=== PATIENT | male | born 1985 | race Two or more races ===

== ENCOUNTER 2020-06-03 17:25 | Outpatient (REF) | payer OTHER, SELFPAY | END 2020-06-03 17:26 | disposition home or self-care (01) | LOC: HO.LAB 17:25 | PROVIDERS: Visit Provider Internal Medicine | DX: Z20.822 Contact with and (suspected) exposure to COVID-19 (principal) | CPT/HCPCS: 36415; C9803; U0003; U0005 ==

== ENCOUNTER 2021-04-23 12:40 | Outpatient (REF) | payer OTHER, SELFPAY ==
[2021-04-23 16:04] LABS: COVID-19 Test Positive (Negative); IDNOW Serial# 16C4AD1C
== END 2021-04-23 12:41 | disposition home or self-care (01) ==
LOC: HO.LAB 12:40
PROVIDERS: Visit Provider Internal Medicine
DX: Z20.822 Contact with and (suspected) exposure to COVID-19 (principal)
CPT/HCPCS: 36415; 87635; C9803

== ENCOUNTER 2024-10-05 09:49 | Outpatient (AMB) | payer OTHER, SELFPAY ==
--- NOTE | 2024-10-05 10:05 | MHC.OFFVIS ---
Vital Signs 10/05/24 10:15 Height 6 ft 2.75 in Weight 251 lb 6 oz BMI 31.6 BP 130/71 Blood Pressure Location Lt brachial Position Sitting Pulse 72 Intake Visit Reasons: (L) upper extremity lipoma Intake Note: Patient is seen in office for evaluation of a lipoma of the left extremity. Pt c/o: left shoulder lipoma, onset 02/27/22 was at work and then started to feel pain and a lump, was swollen at the time, has not gone down since, denies discharge, redness, or other concerns Junior Software Developer Required: No Accompanied by: Self / Same As Patient Allergies No Known Allergies Allergy (Verified 10/05/24 10:14) Medication List - Last Reconciled 10/05/24 by Elijah Caal MD No Known Home Meds HPI Comments Details: 39-year-old male patient presenting with a soft tissue mass of his posterior left shoulder. He 1st noted the lump on 03/19/2022 while lifting a can of ink at work. He felt a pop and then became aware of the lump was posterior shoulder. Since this time the lump has increased in size and causes some mild discomfort. He denies any redness in the skin or discharge. He denies any previous surgery at this location. He is requesting excision of this lump. [facility] Surgical History History of dental surgery Family History Father Stomach cancer Maternal Grandmother Colon cancer Social History Alcohol intake: current Alcohol intake frequency: holidays/special occasions only Patient Tobacco Use Status: Never used Tobacco Review of Systems Const All systems reviewed & are unremarkable except as noted in HPI and below Physical Exam Vital Signs: Last Vital Signs Pulse 72 10/05/24 10:15 BP 130/71 10/05/24 10:15 BMI result Body Mass Index 31.6 Const General: cooperative and no acute distress Nutritional Appearance: well nourished Orientation/consciousness: patient oriented x3 Limitations: no limitations HEENT Head: Yes normocephalic and Yes atraumatic Ears: hearing grossly normal bilaterally Resp Effort & Inspection: normal respiratory effort, no audible wheezes, no cough and no respiratory distress Cardio Jugular venous distension: no JVD GI Inspection: Yes normal to inspection Back/Spine/Pelvis Back/spine/pelvis image: 1. 5 cm soft tissue mass in the posterior left shoulder, mobile within the subcutaneous tissue, most consistent with a lipoma. No overlying skin changes are noted. Skin Other: Warm, dry, no rash Neuro General: patient oriented x3 Extrem General: Yes no clubbing, cyanosis or edema Assessment & Plan Assessment & Plan (1) Lipoma of torso: Code(s): D17.1 - Benign lipomatous neoplasm of skin and subcutaneous tissue of trunk Category: Medical Plan 39-year-old male patient presenting with a probable lipoma of the posterior left shoulder measuring approximately 5 cm in diameter. We discussed surgical options regarding excision of this lipoma. After discussion of the procedure, risks, and alternatives, he consents to excision of the left posterior shoulder lipoma as a minor surgery under local anesthesia. Coding Level of Care Code New Pt Level 4 (47068) Diagnoses Lipoma of torso D17.1
[2024-10-05 10:15] VITALS: BP 130/71; PULSE 72; BMI 31.6
--- OUTSIDE RECORDS SUMMARY | 2024-10-05 10:55 | XMS_ITS | Clinical Summary ---
Author Organization [employer] Address [address] [facility] 7[address] [place] [address] Care Team Providers Care Overlock Sewing Machine Operator Name Role Phone Jose Choudhary MD Primary Care Prov ider Allergies Active Allergy Reactions Criticality Noted Date Comments Gramineae Pollens Runny nose 08/23/2024 Medications No known medications Active Problems Problem Noted Date Diagnosed Date Encounter for medical examination to establish c are 08/23/2024 Assessment & Plan (08/23/2024 11:02 AM EDT): Last pcp visit over 10 yrs ER: - Hospitalization: PMHX: - Pshx: - All: - Meds: multivitamins Lipoma of left upper extremity 08/23/2024 Assessment & Plan (08/23/2024 11:12 AM EDT): Left upper back/shoulder lipoma, will refer to surgery for evaluation Encounters Date Type Department Care Team Description 08/23/2024 10:45 AM EDT Telemedicine [facility] MED & PEDS [address] [place] [address] Jose Choudhary MD Encounter for medical examination to establish care (Primary Dx); Lipoma of left upper extremity 08/23/2024 Travel from Last 3 Months Family History Medical History Relation Name Comments Stomach cancer Father Colon cancer Maternal Grandmother No Known Problems Mother Relation Name Status Comments Father Maternal Grandmother Mother Social History Tobacco Use Types Packs/Day Years Used Date Smoking Tobacco: Never Smokeless Tobacco: Never Tobacco Cessation:Counseling Given: Not Answered Alcohol Use Standard Drinks/Week Comments Yes 0 (1 standard drink = 0.6 oz pur e alcohol) socially Depression Answer Date Recorded Patient Health Questionnaire-9 Score 0 08/23/2024 Patient Health Questionnaire-9 Score 0 08/23/2024 Last PHQ-9: Questionnaire Data Not on file 0 08/23/2024 Housing Stability Answer Date Recorded What is your housing situation today? I have mayra ruiz 08/23/[address] you li ve. Do you have problems with any of the following? None of the above 08/23/2024 Food Insecurity Answer Date Recorded Within the past 12 months, y ou worried that your food would run out before you got money to buy more: Never True 08/23/2024 Within the past 12 months,th e food you bought just didn't last and you didn't have enough money to get more: Never True Transportation Answer Date Recorded In the past 12 months, has l ack of transportation kept you from medical appts, meetings, work or from getting things needed for daily living? No 08/23/2024 Utilities Answer Date Recorded In the past 12 months, has t he electric, gas, oil or water company threatened to shut off services in your home? No 08/23/2024 Depression Answer Date Recorded Patient Health Questionnaire-2 Score 0 08/23/2024 Internet Access Answer Date Recorded Internet Access Q1 Yes 08/23/2024 Internet Access Q2 Not on file 08/23/2024 Sex and Gender Information Value Date Recorded Sex Assigned at Male 08/23/2024 8:09 AM EDT Legal Sex Male 2:53 PM EDT Gender Identity Male 08/23/2024 8:09 AM EDT Sexual Orientation Straight 08/23/2024 8: 09 AM EDT Plan of Treatment Upcoming Encounters Date Type Department Care Team ([facility] st Contact Info) Description 11/27/2024 9:30 AM EDT Office Visit [facility] MED & PEDS [address] [place] [address] Jose Choudhary MD [address] [place] [address] Health Maintenance Due Date Last Done Comments HIV Screening 1987 Lipid Panel 1987 Family Planning (PISQ) 2002 Hepatitis C Screening 2005 DTaP/Tdap/Td Vaccines (1 - Tdap) 2006 Hepatitis B Vaccines (1 of 3 - 19+ 3-dose series) 2006 COVID-19 Vaccine ( - 2023-2 5 season) 2023 Influenza Vaccine (Season Ended) 2024 Alcohol/Substance Use Screening 08/23/2025 08/23/2024 Depression Screening 08/23/2025 08/23/2024, 08/23/2024 Disability Screening 08/23/2025 08/23/2024 SDOH Screening 08/23/2025 08/23/2024 Tobacco Screening 08/23/2025 08/23/2024 Zoster Vaccines (1 of 2) 2037 RSV Patients and Patients Aged 60 years or older (1 - 1-dose 75+ series) 2062 HIB Vaccines Aged Out No longer eligi ble based on patient's age to complete this topic HPV Vaccines Aged Out No longer eligi ble based on patient's age to complete this topic Hepatitis A Vaccines Aged Out No long er eligible based on patient's age to complete this topic IPV Vaccines Aged Out No longer eligi ble based on patient's age to complete this topic Meningococcal B Vaccine Aged Out No l onger eligible based on patient's age to complete this topic Meningococcal Vaccine Aged Out No [place] rick eligible based on patient's age to complete this topic Pneumococcal Vaccine: Pediatrics (0 to 5 Years) and At-Risk Patients (6 to 49) Years) Aged Out No longer eligible b ased on patient's age to complete this topic RSV under 20 months Aged Out No longe r eligible based on patient's age to complete this topic Rotavirus Vaccines Aged Out No longer eligible based on patient's age to complete this topic Insurance [facility] [address] [facility] , [address] [place] [address] Care Teams Overlock Sewing Machine Operator Relationship Specialty Start Date End Date Jose Choudhary MD [address] [place] [id number] PCP - General Internal Medicine 08/23/24
== END 2024-10-05 10:53 | disposition home or self-care (01) ==
LOC: HO.HGS 09:50
PROVIDERS: PCP Internal Medicine; Visit Provider Surgery
DX: D17.1 Benign lipomatous neoplasm of skin and subcutaneous tissue of trunk (principal)
CPT/HCPCS: 99204

== ENCOUNTER → 2024-10-05 09:49 | Outpatient (BNVA) | payer OTHER, SELFPAY | PROVIDERS: PCP Internal Medicine; Visit Provider Surgery ==

== ENCOUNTER 2024-11-07 13:41 | Outpatient (REF) | payer OTHER, SELFPAY ==
[2024-11-07 13:48] VITALS: BP 149/83; PULSE 89; RESP 19; TEMP 36.1; O2SAT 96; BMI 32.1
--- NOTE | 2024-11-07 14:58 | W.PM.OPN ---
Operative Note Operative Note Date of Service: 11/07/24 Narrative: Preoperative diagnosis: Lipoma left posterior shoulder Postoperative diagnosis:same Procedure: Excision of left posterior shoulder lipoma Surgeon: Elijah Caal MD Strap Folding Machine Operator: Yuri GRAF Anesthesia: local lidocaine 1% with epinephrine Indications for procedure: 39-year-old male presenting with a soft tissue mass located in the left posterior shoulder measuring approximately 3 cm in diameter Operative findings: 3 cm lipoma left shoulder Specimen: lipoma left shoulder Estimated blood loss: less than 2 mL Complications: none Procedure details: patient was brought to the minor surgery suite and placed in a prone position. The site of surgery was confirmed by the patient in the left posterior shoulder. After assuring informed consent the skin was prepped with Betadine and draped in a sterile fashion. Local anesthesia was infiltrated in a longitudinal fashion directly over the lipoma. An incision was then made with a scalpel and carried out through subcutaneous tissue up to the lipoma. The lipoma was then sharply dissected from the surrounding subcutaneous tissue using a sharp scissors. Hemostasis was assured using light pressure. The specimen was removed and sent to pathology for further examination. Deep subcutaneous tissue was then reapproximated using interrupted 3-0 Polysorb sutures. Dermis was reapproximated using interrupted 3-0 Polysorb sutures. Skin was then closed using a running subcuticular 4-0 Polysorb suture. Sterile dressings consisting of Steri-Strips, 2 x 2 gauze and Tegaderm were then applied. The patient tolerated the procedure well. He was discharged to home in stable condition.
--- OUTSIDE RECORDS SUMMARY | 2024-11-07 15:02 | XMS_ITS | Clinical Summary ---
Author Organization [employer] Address [address] [facility] [address] [place] [address] Care Team Providers Care Chief Deputy Court Clerk Name Role Phone Jose Choudhary MD Primary [...] Team Description 08/23/2024 10:45 AM EDT Telemedicine [facility] MED & PEDS [address] [place] [address] Jose Choudhary MD Encounter for medical examination [...] Upcoming Encounters Date Type Department Care Team ([facility] st Contact Info) Description 11/27/2024 9:30 AM EDT Office Visit [facility] MED & PEDS [address] [place] [address] Jose Choudhary MD [address] [place] [address] Health Maintenance Due Date Last Done Comments HIV Screening 1987 Lipid Panel 1987 Family Planning (PISQ) 2002 HPV Vaccines (1 - Male 3-dos e series) 2002 Hepatitis C Screening 2005 DTaP/Tdap/Td Vaccines (1 - Tdap) 2006 Hepatitis B Vaccines (1 of 3 - 19+ 3-dose series) 2006 COVID-19 Vaccine (1 - 2023-2 5 season) 2023 Influenza Vaccine (#1) 2024 Alcohol/Substance Use Screening 08/23/2025 08/23/2024 Depression [...] topic Meningococcal Vaccine Aged Out No [place] irck eligible based on patient's age to complete this topic Pneumococcal Vaccine: Pediatrics (0 to 5 Years) and At-Risk Patients (6 to 49) Years Aged Out No longer eligible b ased on patient's age to complete this topic RSV under 20 months Aged Out No longe r eligible based on patient's age to complete this topic Rotavirus Vaccines Aged Out No longer eligible based on patient's age to complete this topic Insurance [facility] [address] [address] [facility] , [address] [place] [address] [address] Clerk Relationship Specialty Start Date End Date MalaveJose Nieves MD [address] [place] [address] [place] [address] PCP - General Internal Medicine 08/23/24
== END 2024-11-07 13:42 | disposition home or self-care (01) ==
LOC: HO.MS 13:41
PROVIDERS: PCP Internal Medicine; Visit Provider Surgery
PROC: (CPT 11403; principal; 2024-11-07 14:30)
DX: D17.1 Benign lipomatous neoplasm of skin and subcutaneous tissue of trunk (principal)
CPT/HCPCS: 11403; 88304; J2004

== ENCOUNTER → 2024-11-07 13:41 | Outpatient (BNV) | payer OTHER, SELFPAY | PROVIDERS: PCP Internal Medicine; Visit Provider Surgery | DX: D17.22 Benign lipomatous neoplasm of skin and subcutaneous tissue of left arm (principal) | CPT/HCPCS: 23071 ==

== ENCOUNTER 2024-11-27 10:21 | Outpatient (REF) | payer OTHER, SELFPAY ==
--- OUTSIDE RECORDS SUMMARY | 2024-11-27 09:30 | XMS_ITS | Encounter Summary ---
Author Organization [employer] Address [address] [facility] [address] [place] [address] Care Team Providers Care Biology Instructor Name Role Phone Jose Choudhary MD Primary Care Prov ider Encounter Details Date Type Department Care Team (Late st Contact Info) Description 11/27/2024 9:30 AM EDT Office Visit [facility] CHC MED & PEDS [address] [place], [place] [id number] Jose Choudhary MD [address] [place] [address] Class 1 obesity due to excess calories without serious comorbidity with body mass index (BMI) of 31.0 to 31.9 in adult (Primary Dx); Physical exam Social History Tobacco Use Types Packs/Day Years Used Date Smoking Tobacco: Never Smokeless Tobacco: Never Alcohol Use Standard Drinks/Week Comments Yes 0 [...] Orientation Straight 08/23/2024 8: 09 AM EDT documented as of this encounter Last Filed Vital Signs Vital Sign Reading Time Taken Comments Blood Pressure 133/86 11/27/2024 9:25 AM EDT Pulse 72 11/27/2024 9:25 AM EDT Temperature 36.6 C (97.9 F) 11/27/2024 9:25 AM EDT Respiratory Rate 20 11/27/2024 9:25 AM EDT Oxygen Saturation - - Inhaled Oxygen Concentration - - Weight 112 kg (247 lb) 11/27/2024 9:25 AM EDT Height 188 cm (6' 2 ) 11/27/2024 9:25 AM EDT Body Mass Index 31.71 11/27/2024 9:25 AM EDT documented in this encounter Progress Notes * Jose Langley MD - 11/27/2024 9:30 AM EDT Subjective Patient ID: Edmond Lindo is a 39 y.o. male who presents for No chief complaint on file.. HPI Patient was seen on office for a physical exam Review of Systems Constitutional: Negative for chills, fatigue and fever. Respiratory: Negative for cough and shortness of breath. Cardiovascular: Negative for chest pain. Gastrointestinal: Negative for abdominal distention and blood in stool. Objective Physical Exam Constitutional: Appearance: Normal appearance. HENT: Right Ear: Tympanic membrane, ear canal and external ear normal. There is no impacted cerumen. Left Ear: Tympanic membrane, ear canal and external ear normal. There is no impacted cerumen. Cardiovascular: Rate and Rhythm: Normal rate. Heart sounds: No murmur heard. Pulmonary: Effort: Pulmonary effort is normal. No respiratory distress. Breath sounds: No wheezing or rhonchi. Abdominal: General: Abdomen is flat. There is no distension. Palpations: There is no mass. Tenderness: There is no abdominal tenderness. There is no guarding or rebound. Neurological: General: No focal deficit present. Mental Status: He is alert and oriented to person, place, and time. Psychiatric: Mood and Affect: Mood normal. Assessment/Plan Problem List Items Addressed This Visit Class 1 obesity due to excess calories without serious comorbidity with body mass index (BMI) of 31.0 to 31.9 in adult - Primary Encouraged to exercise every other day, decrease calorie intake, eat 3 meals, follow up as needed Relevant Orders CBC auto differential Comprehensive Metabolic Panel Lipid Panel, Standard TSH W/Reflex to FT4 HIV-1/2 Antigen and Antibodies, Fourth Generation, with Reflexes Hepatitis C Antibody with Reflex to HCV, RNA, Quantitative, Real-Time PCR Urinalysis with reflex microscopic Physical exam Unremarkable examination, no thyroid nodules, no heart murmurs, clear to auscultation bilaterally, will order routine blood work documented in this encounter Miscellaneous Notes * Assessment & Plan Note - Jose Langley MD - 11/27/2024 10:02 AM EDTAssociated Problem(s): Class 1 obesity due to excess calories without serious comorbidity with bodymass index (BMI) of 31.0 to 31.9 in adult Encouraged to exercise every other day, decrease calorie intake, eat 3 meals, follow up as needed * Assessment & Plan Note - Jose Langley MD - 11/27/2024 10:01 AM EDTAssociated Problem(s): Physical exam Unremarkable examination, no thyroid nodules, no heart murmurs, clear to auscultation bilaterally, will order routine blood work documented in this encounter Plan of Treatment Scheduled Orders Name Type Priority Associated Diagnoses Orde r Schedule CBC auto differential Lab Routine Class 1 obesity due to excess calories without serious comorbidity with body mass index (BMI) of 31.0 to 31.9 in adult Expected: 11/27/2024 (Approximate), Expires: 11/27/2025 Comprehensive Metabolic Panel Lab Routine Class 1 obesity due to excess calories without serious comorbidity with body mass index (BMI) of 31.0 to 31.9 in adult Expected: 11/27/2024 (Approximate), Expires: 11/27/2025 Lipid Panel, Standard Lab Routine Class 1 obesity due to excess calories without serious comorbidity with body mass index (BMI) of 31.0 to 31.9 in adult Expected: 11/27/2024 (Approximate), Expires: 11/27/2025 TSH W/Reflex to FT4 Lab Routine Class 1 obesity due to excess calories without serious comorbidity with body mass index (BMI) of 31.0 to 31.9 in adult Expected: 11/27/2024 (Approximate), Expires: 11/27/2025 HIV-1/2 Antigen and Antibodies, Fourth Generation, with Reflexes Lab Routine Class 1 obesity due to excess calories without serious comorbidity with body mass index (BMI) of 31.0 to 31.9 in adult Expected: 11/27/2024 (Approximate), Expires: 11/27/2025 Hepatitis C Antibody with Reflex to HCV, RNA, Quantitative, Real-Time PCR Lab Routine Class 1 obesity due to excess calories without serious comorbidity with body mass index (BMI) of 31.0 to 31.9 in adult Expected: 11/27/2024, Expires: 11/27/2025 Urinalysis with reflex microscopic Lab Routine Class 1 obesity due to excess calories without serious comorbidity with body mass index (BMI) of 31.0 to 31.9 in adult Expected: 11/27/2024, Expires: 11/27/2025 documented as of this encounter Visit Diagnoses Diagnosis Class 1 obesity due to excess calories without serious comorbidity with body mass index (BMI) of 31.0 to 31.9 in adult- Primary Physical exam Unspecified general medical examination documented in this encounter Additional Health Concerns Assessment Noted Time PHQ-9 Depression Total Score: 0 08/24/19 25 10:17 AM EDT documented as of this encounter Care Teams Biology Instructor Relationship Specialty Start Date End Date Jose Choudhary MD [address] [place] [id number] PCP - General Internal Medicine 08/23/24 documented as of this encounter
[2024-11-27 13:57] LABS: MANUAL DIFF FLAG NO
[2024-11-27 14:11] LABS: Hematocrit 45.7 % (42.0-52.0); Hemoglobin 15.2 g/dl (14.0-18.0); Imm Gran Abs Auto 0.01 X10*3/uL (0.00-0.03); Imm Gran Pct Auto 0.2 % (0.0-0.4); Lymphocytes Absolute Auto 2.0 X10*3/uL (1.2-4.9); Mean Corpuscular HGB Conc 33.3 g/dl (31.0-36.0); Mean Corpuscular Hemoglobin 28.8 pg (27.0-33.0); Mean Corpuscular Volume 86.6 fL (80.0-98.0); NRBC Abs Auto 0.000 X10*3/uL (0.0-0.012); NRBC Pct Auto 0.0 /100WBC (0.0-0.2); Platelet Count 301 X10*3/uL (160-400); Red Blood Count 5.28 X10*6/uL (4.60-5.80); White Blood Count 5.6 X10*3/uL (4.8-10.8)
[2024-11-27 14:16] LABS: Appearance Urine Clear; Glucose Urine UA Negative (Negative); PH 5.5 (5.0-9.0); Specific Gravity - Urine 1.025 (1.005-1.025)
[2024-11-27 14:31] LABS: Alanine Aminotransferase 39 U/L (0-40); Albumin Level 4.6 g/dL (3.5-5.0); Alkaline Phosphatase 68 U/L (39-117); Anion Gap 12 (12-20); Aspartate Amino Transferase 31 U/L (5-37); Blood Urea Nitrogen 15 mg/dL (9-16); Calcium 8.9 mg/dL (8.4-10.2); Carbon Dioxide 25 mmol/L (22-29); Chloride 108 mmol/L (96-108); Cholesterol 212 mg/dL (<200); Estimated Glomerular Filt Rate > 60; HDL Cholesterol 37 mg/dL (>40); Potassium 4.2 mmol/L (3.3-5.1); Sodium 141 mmol/L (135-145); Total Protein 7.2 g/dL (6.5-8.0); Triglycerides 118 mg/dL (<150)
[2024-11-28 08:17] LABS: HIV Num 1 0.04 S/CO (0.00-0.99); ~HepC Num1 0.12 S/CO (0.00-0.79); ~Hepatitis C Antibody Nonreactive (Nonreactive)
== END 2024-11-27 10:22 | disposition home or self-care (01) ==
LOC: HO.CHCLDS 10:21
PROVIDERS: Visit Provider Internal Medicine
DX: Z11.4 Encounter for screening for human immunodeficiency virus [HIV] (principal); Z11.59 Encounter for screening for other viral diseases; E66.811 Obesity, class 1; Z68.31 Body mass index [BMI] 31.0-31.9, adult
CPT/HCPCS: 36415; 80053; 80061; 81003; 84443; 85025; 86803; 87389